=== PATIENT | female | born 1940 | race Caucasian/White ===

== ENCOUNTER → 2024-01-05 11:38 | Outpatient (REF) | payer OTHER, SELFPAY | LOC: HWWDC 11:38 | PROVIDERS: ATTENDING PHYSICIAN Internal Medicine Geriatric Medicine | DX: Z12.31 Encounter for screening mammogram for malignant neoplasm of breast (principal) | CPT/HCPCS: 77063; 77067 ==

== ENCOUNTER → 2024-07-05 12:18 | Outpatient (REF) | payer OTHER, SELFPAY | LOC: HWRAD 12:18 | PROVIDERS: ATTENDING PHYSICIAN Internal Medicine Geriatric Medicine | DX: R05.3 Chronic cough (principal) | CPT/HCPCS: 71046 ==

== ENCOUNTER 2024-10-08 11:54 | Emergency (ER) | payer OTHER, SELFPAY ==
[2024-10-08 12:00] VITALS: BP 186/72
[2024-10-08 12:04] VITALS: BMI 35.1
--- NOTE | 2024-10-08 13:24 | ED.GENMED ---
History of Present Illness
General
Chief Complaint: Nose Bleed
Source: patient and family
Exam Limitations: none
Time Seen by Provider: 10/08/24 12:01
Nursing documentation reviewed up to this point in time: agreed with
History of Present Illness
History of Present Illness:
84-year-old female presents Emergency Department due to intermittent nosebleeds since yesterday. She cannot stop this morning. The nasal clip helped it.
Past History
Past History
ED Past Medical History: Cancer (L breast) and Other (Kidney infection, Lumbar stenosis)
ED Past Surgical History: Orthopedic and Other (breast lumpectomy)
Social History
Tobacco: Non-smoker
Personal:
Review of Systems
Review of Systems
Allergies reviewed?: Yes
All Other Systems: Not applicable
Constitutional: Reports no symptoms
EENT: Reports other (Nosebleed)
Respiratory: Reports no symptoms
Cardiac: Reports no symptoms
ABD/GI: Reports no symptoms
: Reports no symptoms
Musculoskeletal: Reports no symptoms
Skin: Reports no symptoms
Neurological: Reports no symptoms
Endocrine: Reports no symptoms
Hematologic/Lymphatic: Reports no symptoms
Psychiatric: Reports no symptoms
Phy Exam
Physical Exam
Physical Exam:
Physical Exam
General: no apparent distress, not acutely ill
Neck: supple. no meningeal signs. normal posterior pharynx
Heart: s1/s2 regular rate and rhythm, no murmur. equal radial
pulses.
HEENT: Pupils equal round reactive to light, EOMI, right sided nosebleed, appears anterior
Lungs: no acute respiratory distress. clear bilaterally
Abdomen: normal bowel sounds. not tender. no CVAT
Neuro: alert and oriented. no focal neurological deficits cranial nerves II through XII intact
Skin: no rash
Psychiatric: well kept. interactive and cooperative
Extremities: no edema. no calf tenderness. negative homans. good distal pulses
Course
Vital Signs
Initial and Last Documented VS:
Initial Vital Signs
Temp Pulse Resp BP Pulse Ox
97.5 F 91 18 186/72 93
10/08/24 12:00 10/08/24 12:00 10/08/24 12:00 10/08/24 12:00 10/08/24 12:00
Last Documented Vital Signs
Temp Pulse Resp BP Pulse Ox
97.5 F 91 18 186/72 93
10/08/24 12:00 10/08/24 12:00 10/08/24 12:00 10/08/24 12:00 10/08/24 12:00
Procedures
Nosebleed
Drug treatment: Lidocaine and Epinephrine
Treatment: local pressure applied and Merocel packing
Post treatment bleeding: still some oozing
MDM/Problems Addressed
Differential Diagnosis Includes:
Epistaxis, septal hematoma
MDM/Problems Addressed:
84-year-old female with epistaxis, right-sided. Improved with packing. Will treat with amoxicillin. No septal hematoma. Stable for discharge. Follow-up with ENT.
*Pulse Oximetry
Patient hypoxic: no
*Critical Care Note
Total Time (30-74mins, 75-104mins- exclusive of procedures): Not Applicable
Patient Management
Social determinants of health affecting care: Living situation and Strong social support
Escalation/DeEscalation of care consider admission/obs:
Admit not indicated
ED Attending Note
-
Portions of this chart may have been created with voice recognition software.� Occasional wrong word or��sound alike� substitutions may have occurred due to the inherent limitations of voice recognition software.
Discharge Plan
Departure
Patient Disposition: Home (Routine Discharge)
Date of Disposition: 10/08/24
Time of Disposition: 14:37
Patient with high blood pressure during this ER visit?: Yes
Condition: Good
Discharge Problem:
Acute anterior epistaxis
Instructions: Nosebleeds (DC), BLOOD PRESSURE
Prescriptions:
New
amoxicillin 500 mg capsule
500 mg PO TID Qty: 15 0RF
No Action
Calcium + D Tablet
600 mg PO DAILY
pyridoxine (vitamin B6) [Vitamin B-6] 200 MG tablet extended release
200 mg PO PRN PRN (Reason: BLOATING)
cyanocobalamin (vitamin B-12) 1,000 MCG tablet
2,000 mcg PO DAILY
cholecalciferol (vitamin D3) [Vitamin D3] 1,000 UNIT capsule
1,000 unit PO DAILY
duloxetine 30 MG capsule,delayed release(DR/EC)
30 mg PO DAILY
biotin 1,000 MCG tablet,chewable
1,000 mcg PO DAILY
magnesium hydroxide 30 ML suspension
30 ml PO DAILYPRN PRN (Reason: constipation) Qty: 0 0RF
ascorbic acid (vitamin C) [Vitamin C] 500 MG tablet
1,000 mg PO DAILY Qty: 0 0RF
hydrocodone-acetaminophen [Vicodin] 1 EACH tablet
1 ea PO Q6HPRN PRN (Reason: back pain)
acetaminophen 325 MG tablet
650 mg PO QIDPRN PRN (Reason: joint pain)
nitrofurantoin monohyd/m-cryst 100 MG capsule
100 mg PO BID Qty: 14 0RF
sulfamethoxazole-trimethoprim 1 TABLET tablet
1 tab PO BID Qty: 10 0RF
famotidine 20 MG tablet
20 mg PO BID Qty: 28 0RF
Rx Instructions:
Take 20 mg twice a day for 14 days
aspirin 81 MG tablet,chewable
81 mg PO DAILY Qty: 14 0RF
Rx Instructions:
Take 81 mg daily for 14 days
zinc sulfate 220 MG capsule
220 mg PO DAILY Qty: 14 0RF
Rx Instructions:
Take 220 mg daily for 14 days
melatonin 5 MG tablet
5 mg PO HS Qty: 14 0RF
Rx Instructions:
Take 5 mg daily at bedtime for 14 days
cephalexin 500 MG capsule
500 mg PO QID Qty: 28 0RF
doxycycline hyclate 100 MG capsule
100 mg PO BID Qty: 20 0RF
benzonatate 100 MG capsule
200 mg PO TIDPRN PRN (Reason: cough) Qty: 15 0RF
prednisone 50 MG tablet
50 mg PO DAILY Qty: 5 0RF
hydrocodone-homatropine [Hycodan (with homatropine)] 5 ML syrup
5 ml PO Q4HPRN PRN (Reason: cough) Qty: 100 0RF
hydrocodone-acetaminophen 5-325 mg tablet
1 tab PO Q4H PRN (Reason: Pain) Qty: 20 0RF
Referrals:
González Evans MD [Active] - Call in 1-3 days for appt
Chrissy Collins MD [Family Provider] - Call in 1-3 days for appt
Interventions
Interventions:
*Risk Screen - Suicide Last Done: 10/08/24 12:02
*General Assessment Last Done: 10/08/24 12:04
*Neglect/Abuse Screening Last Done: 10/08/24 12:02
ED- Fall Risk Assessment Last Done: 10/08/24 12:05
*ED COVID-19 Vaccine History Last Done: 10/08/24 12:02
ED-EENT Assessment Last Done: 10/08/24 12:05
Discharge Date and Time
Print Language: SPANISH
== END 2024-10-08 14:55 | disposition home or self-care (01) ==
LOC: EMR 11:54
PROVIDERS: EMERGENCY PHYSICIAN Emergency Medicine; FAMILY PHYSICIAN Internal Medicine Geriatric Medicine
DX: R04.0 Epistaxis (principal); R03.0 Elevated blood-pressure reading, without diagnosis of hypertension
CPT/HCPCS: 99282; 30901

== ENCOUNTER → 2025-01-06 09:24 | Outpatient (REF) | payer OTHER, SELFPAY | LOC: HWWDC 09:24 | PROVIDERS: ATTENDING PHYSICIAN Internal Medicine Geriatric Medicine | DX: Z12.31 Encounter for screening mammogram for malignant neoplasm of breast (principal) | CPT/HCPCS: 77063; 77067 ==

== ENCOUNTER 2025-02-13 23:33 | Emergency (ER) | payer OTHER, SELFPAY ==
[2025-02-13 23:40] VITALS: BP 194/78
[2025-02-13 23:48] VITALS: BMI 34.4
[2025-02-14] VITALS: BP 193/60
--- NOTE | 2025-02-14 02:47 | ED.GENMED ---
History of Present Illness
General
Chief Complaint: Nose Bleed
Source: patient
Time Seen by Provider: 02/13/25 23:34
History of Present Illness
History of Present Illness:
Note:
CHIEF COMPLAINT(S)
Nosebleed (Epistaxis)
HISTORY OF PRESENT ILLNESS
The patient is an 84-year-old female who presents with recurrent episodes of epistaxis. She initially experienced a nosebleed on Friday night while [place] [facility] [place] [facility] [place] through cauterization on the right
side of the nose. The bleeding recurred this morning while disposing of the trash, but she was able to stop it temporarily with pressure. Tonight, the bleeding resumed around 9:45 PM while she was getting ready for bed, and she was unable to control
it with pressure as before, describing the bleeding as 'gushing out.' The nosebleeds restarted after getting up to go to the bathroom, from the right nostril, which had previously been cauterized. She denies the use of blood thinners but mentions
prior use of Advil and Aleve, which she discontinued as they were suspected to contribute to the nosebleeds. The patient is scheduled for a follow-up appointment with her primary care physician, Dr. Collins.
The patient reports a history of treatment from an Ear, Nose, and Throat specialist, Dr. Evans, for a nosebleed episode in October and a condition of post-nasal drip. She also affirms taking blood pressure medication, specifically Losartan 50
milligrams, once daily in the morning. The medication was started after the initial nosebleed in October. She reports variable blood pressure readings, noting that it was controlled before and [place] [facility] [place] recent blood
pressure readings taken at [facility] also not indicating significantly high levels. The patients current bleeding episode is causing her distress and is affecting her ability to breathe comfortably.
CHRONIC MEDICAL CONDITIONS SIGNIFICANTLY AFFECTING CARE
Hypertension
SOCIAL DETERMINANTS AFFECTING HEALTH
The patient resides in [facility], an independent living facility, which suggests a level of social support and access to healthcare resources.
MEDICATIONS
Losartan 50 milligrams, taken once daily in the morning for hypertension.
REVIEW OF SYSTEMS
- Nose: Recurrent nosebleeds, right-sided, with recent cauterization.
- Cardiovascular: Hypertension, monitored at home.
- Respiratory: Reports difficulty breathing due to ongoing nasal bleeding.
PHYSICAL EXAM
- Nose: Evidence of recurrent bleeding from the right nostril, previously cauterized.
- Cardiovascular: Blood pressure monitored, with previous stable readings.
Nursing notes reviewed and vital signs reviewed.
PROBLEM LIST
Acute:
- Recurrent epistaxis
Chronic:
- Hypertension
PLAN
Continue monitoring and ensure adequate hemostasis. Encourage relaxation to potentially lower blood pressure naturally.
DIFFERENTIAL DIAGNOSIS
The Differential Diagnosis includes, in no particular order and is not limited to:
Hypertension-induced epistaxis
Recurrent traumatic nasal injury
Nasal septum deviation
Inflammatory conditions such as rhinitis
Use of nonsteroidal anti-inflammatory drugs contributing to mucosal dryness
Foreign body in the nasal cavity
CARE-UPDATE
02/14/25 - 01:04
Removed nasal clip. Fresh clot observed on right side. Administered 1cc nasal epinephrine and inserted sd pack to manage bleeding. Plan to continue observation.
Disposition:
DIAGNOSIS
- Recurrent Epistaxis (ICD-10 code: R04.0)
SUMMARY OF ENCOUNTER
The patient, an 84-year-old female, presented with recurrent nosebleeds, specifically from the right nostril which was previously cauterized. Upon arrival at the emergency department, she had a nasal clamp applied. A sd pack with epinephrine
was inserted to manage the bleeding. After removing the pack and inspecting the nose, no active bleeding, clotting, or injury was visible. A fresh nasal clamp was provided as a precautionary measure against further bleeding. The anterior nares were
lined with antibiotic ointment. The patient was observed for several hours without any new episodes of bleeding.
PLAN
The patient is advised to continue following up with her Ear, Nose, and Throat specialist, Dr. Evans, for ongoing management of her condition.
PATIENT EDUCATION AND COUNSELING
The patient was educated on the use of the provided nasal clamp in case of recurrent bleeding and the importance of following up with her ENT specialist.
FOLLOW-UP INSTRUCTIONS
The patient will follow up with her ENT specialist, Dr. Evans, for continued care and management.
MEDICATION RECONCILIATION
Nasal epinephrine administered during the visit.
Antibiotic ointment applied to the nasal lining.
MEDICAL DECISION MAKING
Number and Complexity of Problems Addressed: The patient presented with acute recurrent epistaxis, indicating a potentially complex vascular issue requiring procedural intervention in the emergency department.
Risk: The decision was influenced by the patients age and the social support available at her independent living facility. The procedure was necessary to prevent potential complications from uncontrolled bleeding. The patients medication regimen was
reviewed, emphasizing the need to avoid nonsteroidal anti-inflammatory drugs due to their potential contribution to mucosal dryness and bleeding risk.
Past History
Past History
ED Past Medical History: Cancer (L breast) and Other (Kidney infection, Lumbar stenosis)
ED Past Surgical History: Orthopedic and Other (breast lumpectomy)
Social History
Tobacco: Non-smoker
Personal:
Phy Exam
Physical Exam
Physical Exam:
.
General Physical Exam
General Presentation: well appearing
Course
Vital Signs
Initial and Last Documented VS:
Initial Vital Signs
Temp Pulse Resp BP Pulse Ox
98.6 F 69 22 194/78 94
02/13/25 23:40 02/13/25 23:40 02/13/25 23:40 02/13/25 23:40 02/13/25 23:40
Last Documented Vital Signs
Temp Pulse Resp BP Pulse Ox
98.6 F 69 22 193/60 92
02/13/25 23:40 02/13/25 23:40 02/13/25 23:40 02/14/25 00:00 02/14/25 00:00
*Pulse Oximetry
Patient hypoxic: no (96% on room air)
*Critical Care Note
Total Time (30-74mins, 75-104mins- exclusive of procedures): Not Applicable
Update Note
Update Note:
84-year-old female with right nostril epistaxis.
ED Attending Note
-
Portions of this chart may have been created with voice recognition software.� Occasional wrong word or��sound alike� substitutions may have occurred due to the inherent limitations of voice recognition software.
Discharge Plan
Departure
Patient Disposition: Home (Routine Discharge)
Date of Disposition: 02/14/25
Time of Disposition: 02:49
Patient with high blood pressure during this ER visit?: Yes
Condition: Good
Discharge Problem:
Acute anterior epistaxis
Instructions: Nosebleeds (DC), BLOOD PRESSURE
Prescriptions:
No Action
Calcium + D Tablet
600 mg PO DAILY
pyridoxine (vitamin B6) [Vitamin B-6] 200 MG tablet extended release
200 mg PO PRN PRN (Reason: BLOATING)
cyanocobalamin (vitamin B-12) 1,000 MCG tablet
2,000 mcg PO DAILY
cholecalciferol (vitamin D3) [Vitamin D3] 1,000 UNIT capsule
1,000 unit PO DAILY
duloxetine 30 MG capsule,delayed release(DR/EC)
30 mg PO DAILY
biotin 1,000 MCG tablet,chewable
1,000 mcg PO DAILY
magnesium hydroxide 30 ML suspension
30 ml PO DAILYPRN PRN (Reason: constipation) Qty: 0 0RF
ascorbic acid (vitamin C) [Vitamin C] 500 MG tablet
1,000 mg PO DAILY Qty: 0 0RF
hydrocodone-acetaminophen [Vicodin] 1 EACH tablet
1 ea PO Q6HPRN PRN (Reason: back pain)
acetaminophen 325 MG tablet
650 mg PO QIDPRN PRN (Reason: joint pain)
nitrofurantoin monohyd/m-cryst 100 MG capsule
100 mg PO BID Qty: 14 0RF
sulfamethoxazole-trimethoprim 1 TABLET tablet
1 tab PO BID Qty: 10 0RF
famotidine 20 MG tablet
20 mg PO BID Qty: 28 0RF
Rx Instructions:
Take 20 mg twice a day for 14 days
aspirin 81 MG tablet,chewable
81 mg PO DAILY Qty: 14 0RF
Rx Instructions:
Take 81 mg daily for 14 days
zinc sulfate 220 MG capsule
220 mg PO DAILY Qty: 14 0RF
Rx Instructions:
Take 220 mg daily for 14 days
melatonin 5 MG tablet
5 mg PO HS Qty: 14 0RF
Rx Instructions:
Take 5 mg daily at bedtime for 14 days
cephalexin 500 MG capsule
500 mg PO QID Qty: 28 0RF
doxycycline hyclate 100 MG capsule
100 mg PO BID Qty: 20 0RF
benzonatate 100 MG capsule
200 mg PO TIDPRN PRN (Reason: cough) Qty: 15 0RF
prednisone 50 MG tablet
50 mg PO DAILY Qty: 5 0RF
hydrocodone-homatropine [Hycodan (with homatropine)] 5 ML syrup
5 ml PO Q4HPRN PRN (Reason: cough) Qty: 100 0RF
hydrocodone-acetaminophen 5-325 mg tablet
1 tab PO Q4H PRN (Reason: Pain) Qty: 20 0RF
amoxicillin 500 mg capsule
500 mg PO TID Qty: 15 0RF
Referrals:
González Evans MD [Active, Otology]
Chrissy Collins MD [Family Provider, Internal Medicine]
Activity Restrictions/Additional Instructions:
Please follow-up with Dr. Evans, ENT as discussed
Thank You for choosing [facility].
It was a pleasure meeting you and taking part in your care. We hope for your continued healing and wellness.
Please read discharge instructions in their entirety. However, they are for general education and may not describe your exact diagnosis at discharge. Information on your ER visit and medical conditions were discussed with you along with appropriate
follow up information...
If indicated, please take your medications as instructed and indicated on discharge paperwork.
Please schedule a follow up appointment as directed. Call to schedule an appointment
Please return to the emergency department with ANY change in, persisting, or worsening of symptoms. If any of your symptoms do not improve, or persist, or become more severe within 6-12 hours, please return to the emergency department for further
care.
Please return to the emergency department if you develop a headache, neck pain/stiffness, fever greater than 100.4F, chest pain, shortness of breath, persistent nausea, vomiting, slurred speech, difficulty walking, numbness/tingling, weakness, signs
of infection or any other symptoms that are worrisome to you.
If you have any questions or concerns please do not hesitate to call the Hospital at or E-mail me directly at [email or web address]
Interventions
Interventions:
*Risk Screen - Suicide Last Done: 02/13/25 23:40
*General Assessment Last Done: 02/13/25 23:40
*Neglect/Abuse Screening Last Done: 02/13/25 23:40
*ED- Fall Risk Assessment Last Done: 02/13/25 23:40
*ED COVID-19 Vaccine History Last Done: 02/13/25 23:40
ED-EENT Assessment Last Done: 02/13/25 23:40
Discharge Date and Time
Print Language: HEBREW
== END 2025-02-14 03:02 | disposition home or self-care (01) ==
LOC: EMR 23:33
PROVIDERS: EMERGENCY PHYSICIAN Student in an Organized Health Care Education/Training Program; FAMILY PHYSICIAN Internal Medicine Geriatric Medicine
DX: R04.0 Epistaxis (principal); I10 Essential (primary) hypertension; M48.061 Spinal stenosis, lumbar region without neurogenic claudication; Z79.899 Other long term (current) drug therapy; Z85.3 Personal history of malignant neoplasm of breast
CPT/HCPCS: 99283; 30901

== ENCOUNTER 2025-02-19 07:24 | Emergency (ER) | payer OTHER, SELFPAY ==
[2025-02-19 07:25] VITALS: BP 185/80; BMI 30.6
--- NOTE | 2025-02-19 08:17 | ED.GENMED ---
History of Present Illness
General
Chief Complaint: Nose Bleed
Source: patient
Exam Limitations: none
Time Seen by Provider: 02/19/25 07:30
Nursing documentation reviewed up to this point in time: agreed with
History of Present Illness
History of Present Illness:
Patient presents to ED secondary to spontaneous nosebleed, while watching TV this morning. Patient unfortunately has had multiple episodes of bleeding over the past 1 week, which resolved with pressure or insertion of packing material purchased.
Denies fever. Denies coughing. Denies recent illness. Denies trauma. Patient reports mild nausea sensation with continual bleeding down her throat at home, which now has resolved. Denies dizziness or shortness of breath. Denies weakness.
Denies headache. Denies abdominal pain. Denies taking any blood thinning medications, including [id number] aspirin or ibuprofen.
Past History
Past History
ED Past Medical History: Cancer (L breast) and Other (Kidney infection, Lumbar stenosis)
ED Past Surgical History: Orthopedic and Other (breast lumpectomy)
Social History
Tobacco: Non-smoker
Personal:
Review of Systems
Review of Systems
Allergies reviewed?: Yes
All Other Systems: ROS reviewed and negative except as documented in HPI and ROS
Constitutional: Reports no symptoms; Denies fever
EENT: Reports other (Epistaxis)
Respiratory: Reports no symptoms; Denies cough or trouble breathing
ABD/GI: Reports nausea; Denies abdominal pain or vomiting
Musculoskeletal: Reports no symptoms
Skin: Reports no symptoms
Neurological: Reports no symptoms; Denies dizzy, headache or weakness
Phy Exam
Physical Exam
Physical Exam:
Physical Exam
General: mild distress, not acutely ill. afebrile
Head: nc/at. eomi
Neck: supple. no meningeal signs.
Heart: s1/s2 regular rate and rhythm
Lungs: no acute respiratory distress. clear bilaterally
Abdomen: normal bowel sounds. not tender.
Neuro: alert and oriented x 3. no focal neurological deficits
Skin: no rash
Psychiatric: well kept. interactive and cooperative
Extremities: no edema. no calf tenderness.
Course
Orders/Labs/Results
Orders:
Orders
02/19/25 07:45
Phenylephrine 0.5% Regular Spr [Donn-Synephrine 0.5% Nasal [place]] 1 spray .ROUTE .STK-MED ONE
02/19/25 08:12
Complete Blood Count/With Diff Urgent
PTT Urgent
Prothrombin Time Urgent
Abnormal Lab Results
02/19/25
08:12
MCH 31.6 H pg
(27.0-31.0)
02/19/25 08:12
Vital Signs
Initial and Last Documented VS:
Initial Vital Signs
Temp Pulse Resp BP Pulse Ox
97.6 F 78 17 185/80 94
02/19/25 07:25 02/19/25 07:25 02/19/25 07:25 02/19/25 07:25 02/19/25 07:25
Last Documented Vital Signs
Temp Pulse Resp BP Pulse Ox
97.6 F 82 24 145/66 91
02/19/25 08:54 02/19/25 09:30 02/19/25 09:15 02/19/25 08:54 02/19/25 09:15
Procedures
Nosebleed
Drug treatment: Neosynephrine
Treatment: local pressure applied and Epistat nasal catheter
Post treatment bleeding: none- good control
MDM/Problems Addressed
MDM/Problems Addressed:
Patient evaluated immediately upon arrival with nasal clamp in place. After removal of packing placed at home, patient asked to blow her nose with removal of large clot of blood clots. Afterwards, Donn-Synephrine spray applied, followed by
insertion of Rhino nasal packing, with complete cessation of nosebleed. H&H stable. Patient without any further episodes of epistaxis during observation. Patient is otherwise hemodynamically stable and nontoxic-appearing at time of discharge.
Patient will follow-up with her ENT physician next week for reevaluation.
Blood pressure is improved during observation in ED. As patient recently has had her medication adjusted, will advise patient to keep a log of her blood pressure and follow-up with her primary care physician for reevaluation and further adjustment,
as needed. Patient and her family agree with treatment plan.
*Pulse Oximetry
SaO2: 93
*Critical Care Note
Total Time (30-74mins, 75-104mins- exclusive of procedures): Not Applicable
ED Attending Note
-
Portions of this chart may have been created with voice recognition software.� Occasional wrong word or��sound alike� substitutions may have occurred due to the inherent limitations of voice recognition software.
Discharge Plan
Departure
Patient Disposition: Home (Routine Discharge)
Date of Disposition: 02/19/25
Time of Disposition: 09:08
Patient with high blood pressure during this ER visit?: Yes
Discharge Problem:
Epistaxis
Instructions: Nosebleeds (DC)
Prescriptions:
No Action
pyridoxine (vitamin B6) [Vitamin B-6] 200 MG tablet extended release
200 mg PO PRN PRN (Reason: BLOATING)
duloxetine 30 MG capsule,delayed release(DR/EC)
30 mg PO DAILY
acetaminophen 325 MG tablet
650 mg PO QIDPRN PRN (Reason: joint pain)
benzonatate 100 MG capsule
200 mg PO TIDPRN PRN (Reason: cough) Qty: 15 0RF
hydrocodone-acetaminophen 5-325 mg tablet
1 tab PO Q4H PRN (Reason: Pain) Qty: 20 0RF
multivitamin [Daily Multivitamin] Tablet
1 tab PO DAILY
losartan 50 mg Tablet
50 mg PO BID
omeprazole 40 mg Capsule,Delayed Release(Dr/Ec)
40 mg PO DAILY
Referrals:
González Evans MD [Active, Otology]
UNKNOWN - PT DOES,NOT KNOW [Unknown Provider]
Activity Restrictions/Additional Instructions:
As discussed, please follow-up with your ENT physician next week for reevaluation.
Interventions
Interventions:
*Risk Screen - Suicide Last Done: 02/19/25 07:25
*General Assessment Last Done: 02/19/25 07:25
*Neglect/Abuse Screening Last Done: 02/19/25 07:25
*ED- Fall Risk Assessment Last Done: 02/19/25 07:25
*ED COVID-19 Vaccine History Last Done: 02/19/25 07:25
*Nursing Disposition Last Done: 02/19/25 09:42
ED-EENT Assessment Last Done: 02/19/25 07:25
Discharge Date and Time
Discharge Date/Time: 02/19/25 09:45
Print Language: ARGENTINE
[2025-02-19 08:33] LABS: % Basophils 0.3 % (0-2); % Eosinophils 1.1 % (0-6); % Immature Granulocytes 0.3 % (0-0.5); % Lymphocytes 21.4 % (20.5-51.1); % Monocytes 6.5 % (1.7-9.3); % Neutrophils 70.4 % (42.2-75.2); APTT 25.9 Sec (23.4-35.0); Absolute Eosinophils 0.1 10^3/uL (0-0.7); Absolute Lymphocytes 1.5 10^3/uL (1.2-3.4); Absolute Monocytes 0.5 10^3/uL (0.1-0.6); Hematocrit 39.5 % (37.0-47.0); Hemoglobin 13.7 g/dL (12.0-16.0); INR 1.01; Mean Corp Hgb Conc. 34.7 g/dL (33.0-37.0); Mean Corpuscular Hgb 31.6 pg (27.0-31.0); Mean Corpuscular Volume 91.2 fL (81.0-99.0); Mean Platelet Volume 9.6 fL (7.4-10.4); Nucleated Red Blood Cells % 0 %; PT 13.6 Sec (11.4-14.6); Platelet Count 224 10^3/uL (130-400); Red Blood Cell Count 4.33 10^6/uL (4.20-5.40); Red Cell Dist. Width 13.4 % (11.5-14.5)
[2025-02-19 08:52] VITALS: BP 145/66
[2025-02-19 08:54] VITALS: BP 145/66
--- NOTE | 2025-02-19 09:40 | EDRN ---
the pts son in law arrived to the ED and has concerns and wanted to speak to the provider, the pts son in law stated to this RN, 'I just feel like she keeps having high blood pressure and nose bleeds because her body is telling her something and i'm
worried', this RN stated to the pt and the pts son in law that this RN understood their concerns and this RN did notify the pts son in law that the pts last blood pressure was significantly lower that the first, with the first being in the 180's
systolically and the second being in the 140's systolically, this RN notified Dr. Gomez who is currently at the pts bedside speaking to the pt and the pts son in law, nasal rocket in right nare, no s/s of bleeding
== END 2025-02-19 09:45 | disposition home or self-care (01) ==
LOC: EMR 07:24
PROVIDERS: EMERGENCY PHYSICIAN Emergency Medicine; FAMILY PHYSICIAN Internal Medicine Geriatric Medicine
DX: R04.0 Epistaxis (principal); R03.0 Elevated blood-pressure reading, without diagnosis of hypertension
CPT/HCPCS: 99283; 30901; 85025; 85610; 85730

== ENCOUNTER 2025-05-19 12:22 | Emergency (ER) | payer OTHER, SELFPAY ==
[2025-05-19] VITALS (17 sets, daily range): BP systolic 101–171; BP diastolic 61–136; BMI 34.1
[2025-05-19] MEDS: DILAUDID 1 MG IV ×2 (12:58→13:47)
[2025-05-19] MEDS: ZOFRAN 4 MG IV (12:58)
--- NOTE | 2025-05-19 13:05 | ED.MUSCINJ ---
HPI-Injury
General
Chief Complaint: Fall
Source: patient
Exam Limitations: none
Time Seen by Provider: 05/19/25 12:53
Nursing documentation reviewed up to this point in time: agreed with
History of Present Illness-Injury
Is this injury a work related problem?: No
Is pt an associate of [facility]?: No
Initial Injury comments:
84-year-old female injury to the left wrist slipped getting out of the shower glancing blow to her forehead on the shower door her left wrist took most of the below, she has a deformity of her left wrist with a wound on the volar surface of her hand
near the wrist, severe pain received fentanyl by EMS Dr. Son has operated on her knee previously
Patient takes no blood thinners, denies loss of consciousness no neck pain
Past History
Past History
ED Past Medical History: Cancer (L breast) and Other (Kidney infection, Lumbar stenosis)
ED Past Surgical History: Orthopedic and Other (breast lumpectomy)
Social History
Tobacco: Non-smoker
Personal:
Phy Exam
Physical Exam
Physical Exam:
Physical Exam
General: 84 female normal mental status uncomfortable due to pain
Neck: No tongue bite no posterior neck
Heart: s1/s2 regular rate and rhythm, no murmur. equal radial pulses.
Lungs: no acute respiratory distress. clear bilaterally
Abdomen: Nontender
Neuro: alert and oriented. no focal neurological deficits
Skin: no rash
Psychiatric: well kept. interactive and cooperative
Extremities: Deformity of the left wrist laterally displaced, hematoma on the volar surface stellate laceration on the volar surface of the hand
Injury Course
Orders/Labs/Results
Orders:
Orders
05/19/25 12:25
Wrist, Left 3 Views CR [CR Wrist - Left Min 3 Views] Urgent
Comment:
Reason For Exam: pain
05/19/25 12:57
HYDROmorphone [Dilaudid] 1 mg .ROUTE .STK-MED ONE
HYDROmorphone [Dilaudid] 1 mg IV NOW STA
Ondansetron Injectable [Zofran] 4 mg .ROUTE .STK-MED ONE
Ondansetron Injectable [Zofran] 4 mg IV NOW STA
05/19/25 12:59
CeFAZolin 1 GRAM [Ancef] 1 gram in 5 ml IV NOW
Tetanus/Diphth/Acelpertussis [Adacel] 0.5 ml IM .ONCE ONE
05/19/25 13:20
CeFAZolin 1 GRAM [Ancef] 1 gram in 5 ml IV NOW
05/19/25 13:31
HYDROmorphone [Dilaudid] 1 mg IV NOW STA
05/19/25 13:35
Propofol [Diprivan] 100 mg IV NOW STA
05/19/25 13:36
ASA Classification Routine
05/19/25 13:46
Wrist, Left 2 Views CR [CR Wrist - Left Min 2 Views] Urgent
Comment:
Reason For Exam: post reduction
05/19/25 15:16
Sling Left-Treatment ONCE
Procedures
Moderate Sedation
ASA Risk Score: Class II
Chart and allergies reviewed: Yes
Consent for anesthesia obtained: Yes
Time out completed (validating right patient & procedure): Yes
Moderate Sedation Start Time(when first medication is given): 13:55
History of difficult intubation: No
Airway free of obstruction: Yes
Patient has a gag reflex: Yes
Patient is able to open mouth: Yes
Patient has no dentures: Yes
Patient has no loose teeth: Yes
Medication administered by Provider during Moderate Sedation: IV Propofol (mg)
Total dose administered: 100
Time drug administered: 13:56
Moderate Sedation Procedure End Time: 14:10
Comment: Transient low sats immediately recognized improved with positive pressure
Splint Check
Splint checked by provider?: Yes
Circulation/Movement/Sensation post splint application: brisk cap refill
Splinting/Sling Placement
Left wrist:
Procedure completed by: Patricio
Pre-splint extermity exam: neurovascular intact
Type of splint: sugar-tong
Splint material: fiberglass
Splint checked by provider?: Yes
Normal distal neurovascular exam?: Yes
Joint/Fracture Reduction
Left wrist:
Indication for procedure:: Fracture
Procedure completed by: Patricio
Consent form signed: Yes
Joint reduced: with anesthesia sedation
Injury was: unclear
Further treatement: needs further treatment
Post reduction exam: stable
Capillary Refill: normal
Normal distal neurovascular exam?: Yes
Peripheral Pulses: radial (left): 4+
MDM/Problems Addressed
Differential Diagnosis Includes:
Slip and fall wrist fracture wrist dislocation laceration possible open joint possible glass foreign body
MDM/Problems Addressed:
Fall wrist injury
*Radiology
Radiology exam reviewed: preliminary read by ED provider
*Pulse Oximetry
SaO2: 98
Oxygen Mode of Delivery: Room air
Patient hypoxic: no
*Critical Care Note
Total Time (30-74mins, 75-104mins- exclusive of procedures): Not Applicable
Update Note
Update Note:
310p
images reviewed with ortho
ok to dc
f/u in office
reviewed with patient
ED Attending Note
-
Portions of this chart may have been created with voice recognition software.� Occasional wrong word or��sound alike� substitutions may have occurred due to the inherent limitations of voice recognition software.
Discharge Plan
Departure
Patient Disposition: Home (Routine Discharge)
Date of Disposition: 05/19/25
Time of Disposition: 15:15
Patient with high blood pressure during this ER visit?: No
Condition: Good
Discharge Problem:
Fracture of wrist
Instructions: Wound Care (DC), Preventing falls in adults, Forearm and Wrist Fractures ED, MODERATE SEDATION ADULT
Prescriptions:
New
oxycodone-acetaminophen [Percocet] 5-325 mg tablet
1 tab PO Q6HPRN PRN (Reason: pain) Qty: 20 0RF
cephalexin 500 mg capsule
500 mg PO Q6H 7 Days Qty: 28 0RF
oxycodone-acetaminophen [Percocet] 5-325 mg tablet
1 tab PO Q6HPRN PRN (Reason: pain) Qty: 20 0RF
No Action
duloxetine 30 MG capsule,delayed release(DR/EC)
30 mg PO DAILY
acetaminophen 325 MG tablet
650 mg PO QIDPRN PRN (Reason: joint pain)
omeprazole 40 mg Capsule,Delayed Release(Dr/Ec)
40 mg PO DAILY
Theragen Tablet
1 tab PO DAILY
losartan 100 mg Tablet
100 mg PO DAILY
hydrocodone-acetaminophen 5-325 mg tablet
1 tab PO Q6HPRN PRN (Reason: severe Pain)
triamterene-hydrochlorothiazid 37.5-25 mg Tablet
1 tab PO DAILY
methylprednisolone [Medrol (Anthony)] 4 mg Tablets,Dose Pack
0 mg PO PER PKG DIR
amoxicillin-pot clavulanate [Augmentin] 500-125 mg Tablet
1 tab PO BID
Rx Instructions:
for 5 days starting 05/14/25
Referrals:
Ariela Cottrell DO [Family Provider, Internal Medicine]
Darnell Mensah MD [Active, Orthopedics] - Next open appointment
Interventions
Interventions:
*Risk Screen - Suicide Last Done: 05/19/25 12:27
*General Assessment Last Done: 05/19/25 12:27
*Neglect/Abuse Screening Last Done: 05/19/25 12:27
*ED- Fall Risk Assessment Last Done: 05/19/25 12:27
*ED COVID-19 Vaccine History Last Done: 05/19/25 12:27
ED-Musculoskeletal Assessment Last Done: 05/19/25 12:27
ED- Neurological Assessment Last Done: 05/19/25 12:27
ED-Skin Assessment Last Done: 05/19/25 12:27
Discharge Date and Time
Print Language: NIGERIAN
[2025-05-19] MEDS: ANCEF 5 IV (13:47)
[2025-05-19] MEDS: ADACEL 0.5 ML IM (13:48)
[2025-05-19] MEDS: DIPRIVAN 100 MG IV (13:56)
== END 2025-05-19 15:45 | disposition home or self-care (01) ==
LOC: EMR 12:22
PROVIDERS: EMERGENCY PHYSICIAN Emergency Medicine; FAMILY PHYSICIAN Internal Medicine
DX: S52.592A Other fractures of lower end of left radius, initial encounter for closed fracture (principal); S52.692A Other fracture of lower end of left ulna, initial encounter for closed fracture; S61.412A Laceration without foreign body of left hand, initial encounter; W18.2XXA Fall in (into) shower or empty bathtub, initial encounter; Z23 Encounter for immunization
CPT/HCPCS: 25605; 99152; 96374; 96375; 96376; 99285; 90471; 73100; 73110; 90715

== ENCOUNTER → 2025-06-23 10:36 | Outpatient (REF) | payer OTHER, SELFPAY | LOC: HWRAD 10:36 | PROVIDERS: ATTENDING PHYSICIAN Orthopaedic Surgery; FAMILY PHYSICIAN Internal Medicine | DX: S52.502D Unspecified fracture of the lower end of left radius, subsequent encounter for closed fracture with routine healing (principal); M25.532 Pain in left wrist | CPT/HCPCS: 73200 ==